=== PATIENT | female | born 1955 | race Caucasian/White ===

== ENCOUNTER 2018-11-20 11:43 | Inpatient (IN) | payer BC ==
[2018-11-20] MEDS ORDERED: NITROGLYCERIN 0.4MG SL TABLET #25 BTL SL PRN (12:07)
[2018-11-20] MEDS ORDERED: ASPIRIN 81 MG CHEWABLE TABLET PO ONE (12:07)
[2018-11-20 12:17] LABS: ABSOLUTE NEUTROPHIL COUNT 6.01; BASO % 0.6 % (0-6); EOS % 0.8 % (0-6); HEMATOCRIT 44.9 % (35.0-47.0); HEMOGLOBIN 14.3 gm/dl (11.6-16.0); LYMPH % 30.8 % (16-45); MEAN CORPUSCULAR HEMOGLOBIN 28.7 pg (27-33); MEAN CORPUSCULAR HGB CONC 31.8 g/dl (32-36); MEAN PLATELET VOLUME 10.4 fl (7.4-10.4); MONO % 6.8 % (0-9); PLATELET COUNT 292 K/uL (130-400); RED BLOOD COUNT 4.99 M/uL (3.80-5.40); RED CELL DISTRIBUTION WIDTH 15.7 % (11.5-14.5); WHITE BLOOD COUNT W/O DIFF 9.9 K/uL (4.2-12.2)
[2018-11-20 12:27] LABS: BLOOD UREA NITROGEN 17 mg/dL (8-23)
[2018-11-20 12:28] LABS: CREATININE 0.9 mg/dL (0.5-0.9); EST GLOMERULAR FILTRATION RATE > 60 mL/min; TOTAL PROTEIN 6.9 g/dL (6.6-8.7)
[2018-11-20 12:30] LABS: GLUCOSE,RANDOM 129 mg/dL (74-109)
[2018-11-20 12:33] LABS: ALB/GLOB RATIO 1.7 (1.1-1.8); ALBUMIN 4.3 g/dL (4.0-5.0); ALKALINE PHOSPHATASE 100 U/L (35-104); ALT/SGPT 29 U/L (<33); AST/SGOT 29 U/L (10.0-35.0); CREATINE PHOSPHOKINASE 57 U/L (26-192)
[2018-11-20 12:40] LABS: CKMB 2.2 ng/mL (<3.77)
[2018-11-20 12:44] LABS: THYROID STIMULATING HORMONE 6.87 uIU/mL (0.270-4.20)
[2018-11-20 13:42] LABS: THYROXINE (T4) 7.75 ug/dL (4.5-11.7)
--- NOTE | 2018-11-20 13:50 | Emergency Department Record ---
History of Present Illness - General Chief Complaint: Shortness of breath Stated Complaint: SOB Time Seen by Provider: 11/20/18 11:57 Source: Patient Mode of Arrival: Ambulatory Limitations: No limitations - History of Present Illness Initial Comments: pt went to her drs office this am and was found to be sob and had low sats w walking. pt has never had this problem before. she states she feels like there is a bubble in her chest. she has been under a lot of stress since her dad a few days ago. MD Complaint: Shortness of breath Onset/Timin -: Days(s) Consistency: Constant Worsens With: Nothing Associated Symptoms: Cough Treatments Prior to Arrival: None - Related Data Home Medications Medication Instructions Recorded Confirmed Last Taken Alprazolam [Xanax] 0.5 mg PO TID 11/20/18 11/20/18 Unknown Aspirin [Adult Low Dose Aspirin EC] 81 mg PO DAILY 11/20/18 11/20/18 Unknown Calcium Carb/Mag Ox/Zinc Sulf 1 each PO DAILY 11/20/18 11/20/18 Unknown [Awaqtqn-Skthuxdux-Wwyj Tablet] Clonazepam [Klonopin] 0.5 mg PO BID 11/20/18 11/20/18 Unknown Flaxseed Oil 1,000 mg PO DAILY 11/20/18 11/20/18 Unknown Glucosamine/D3/Boswellia Valencia 1 each PO DAILY 11/20/18 11/20/18 Unknown [Osteo Bi-Flex Tablet] Multivitamin [One Daily 1 each PO DAILY 11/20/18 11/20/18 Unknown Multivitamin] Thyroid,Pork [[place] Thyroid] 60 mg PO DAILY 11/20/18 11/20/18 Unknown Vitamin B Complex 1 each PO DAILY 11/20/18 11/20/18 Unknown Allergies Allergy/AdvReac Type Severity Reaction Status Date / Time dexamethasone [From TobraDex] Allergy HYPERSENSIT Verified 11/20/18 12:17 IVITY gentamicin Allergy PT UNSURE Verified 11/20/18 12:17 OF REACTION ketoconazole [From Nizoral] Allergy HYPERSENSIT Verified 11/20/18 12:17 IVITY levofloxacin [From Levaquin] Allergy HIVES Verified 11/20/18 12:17 neomycin [From Maxitrol] Allergy PT UNSURE Verified 11/20/18 12:17 OF REACTION nitrofurantoin Allergy PT UNSURE Verified 11/20/18 12:17 OF REACTION polymyxin B [From Polytrim] Allergy HIVES Verified 11/20/18 12:17 Sulfa (Sulfonamide Allergy HIVES Verified 11/20/18 12:17 Antibiotics) tobramycin Allergy HIVES Verified 11/20/18 12:17 trimethoprim [From Polytrim] Allergy HIVES Verified 11/20/18 12:17 fluticasone [From Flonase] AdvReac HYPERSENSIT Verified 11/20/18 12:17 IVITY Travel Screening - Travel/Exposure Within Last 30 Days Have you traveled within the last 30 days?: No - Travel/Exposure Within Last Year Have you traveled outside the [place] in the last year?: No - Additonal Travel Details Have you been exposed to anyone with a communicable illness?: No - Travel Symptoms Symptom Screening: None Review of Systems Reviewed: No additional complaints except as noted below Constitutional: Reports: As per HPI. Denies: Chills, Fever, Malaise, Night s weats, Weakness, Weight change Eyes: Reports: As per HPI. Denies: Eye discharge, Eye pain, Photophobia, Vision change ENT: Reports: As per HPI. Denies: Congestion, Dental pain, Ear pain, Epistaxis, Hearing loss, Throat pain Respiratory: Reports: As per HPI. Denies: Cough, Dyspnea, Hemoptysis, Stridor, Wheezes Cardiovascular: Reports: As per HPI. Denies: Arrhythmia, Chest pain, Dyspnea on exertion, Edema, Murmurs, Orthopnea, Palpitations, Paroxysmal nocturnal dyspnea, Rheumatic Fever, Syncope Endocrine: Reports: As per HPI. Denies: Fatigue, Heat or cold intolerance, Polydipsia, Polyuria Gastrointestinal: Reports: As per HPI. Denies: Abdominal pain, Constipation, Diarrhea, Hematemesis, Hematochezia, Melena, Nausea, Vomiting Genitourinary: Reports: As per HPI. Denies: Abnormal menses, Discharge, Dyspareunia, Dysuria, Frequency, Hematuria, Incontinence, Retention, Urgency Musculoskeletal: Reports: As per HPI. Denies: Arthralgia, Back pain, Gout, Joint swelling, Myalgia, Neck pain Skin: Reports: As per HPI. Denies: Bruising, Change in color, Change in juan r/nails, Lesions, Pruritus, Rash Neurological: Reports: As per HPI. Denies: Abnormal gait, Confusion, Headache, Numbness, Paresthesias, Seizure, Tingling, Tremors, Vertigo, Weakness Psychiatric: Reports: As per HPI. Denies: Anxiety, Auditory hallucinations, Depression, Homicidal thoughts, Suicidal thoughts, Visual hallucinations Hematological/Lymphatic: Reports: As per HPI. Denies: Anemia, Blood Clots, Easy bleeding, Easy bruising, Swollen glands Past Medical History - SOCIAL HISTORY Smoking Status: Former smoker Alcohol Use: None Drug Use: None - RESPIRATORY Hx Respiratory Disorders: Yes Hx Pneumonia: Yes - CARDIOVASCULAR Hx Cardio Disorders: No - NEURO Hx Neuro Disorders: No - GI Hx GI Disorders: Yes Hx Wt Loss/Wt Gain: Yes Comment:: pt states that she says she gains 20 within last 2 weeks. 11/20/2018 - Hx Genitourinary Disorders: No - ENDOCRINE Hx Endocrine Disorders: Yes Hx Thyroid Disease: Yes (hypo) - MUSCULOSKELETAL Hx Musculoskeletal Disorders: No - PSYCH Hx Psych Problems: No - HEMATOLOGY/ONCOLOGY Hx Hematology/Oncology Disorders: No Family Medical History Any Significant Family History?: No Physical Exam - General General Appearance: Alert, Oriented x3, Cooperative, Mild distress - Head Head exam: Normal inspection - Eye Eye exam: Normal appearance, PERRL, EOMI Pupils: Normal accommodation - ENT ENT exam: Normal exam, Mucous membranes moist, Normal external ear exam, Normal orophraynx Ear exam: Normal external inspection. negative: External canal tenderness Nasal Exam: Normal inspection. negative: Discharge, Sinus tenderness Mouth exam: Normal external inspection, Tongue normal Teeth exam: Normal inspection. negative: Dental caries Throat exam: Normal inspection. negative: Tonsillar erythema, Tonsillar exudate - Neck Neck exam: Normal inspection, Full ROM. negative: Tenderness - Respiratory Respiratory exam: Decreased breath sounds, Rales. negative: Respiratory distress - Cardiovascular Cardiovascular Exam: Normal rhythm, Normal heart sounds, Tachycardia - GI/Abdominal GI/Abdominal exam: Soft, Normal bowel sounds. negative: Tenderness - Rectal Rectal exam: Deferred - exam: Deferred - Extremities Extremities exam: Normal inspection, Full ROM, Normal capillary refill. negative: Tenderness - Back Back exam: Reports: Normal inspection, Full ROM. Denies: Muscle spasm, Rash noted, Tenderness - Neurological Neurological exam: Alert, Normal gait, Oriented X3, Reflexes normal - Psychiatric Psychiatric exam: Normal affect, Normal mood - Skin Skin exam: Dry, Intact, Normal color, Warm Course Vital Signs 11/20/18 11:45 Temperature 98.6 F Pulse Rate 118 H Respiratory 20 Rate Blood Pressure 113/88 Pulse Ox 95 - Reevaluation(s) Reevaluation #1: 11/20/18 15:16 ct shows bilateral moderate pleural effusions, enlarged l heart Reevaluation #2: 11/20/18 15:39 ekg lbbb, no old one to compare Medical Decision Making - Lab Data Result diagrams: 11/20/18 11:55 11/20/18 11:55 Lab Results 11/20/18 11/20/18 11/20/18 Range/Units 11:55 11:55 11:55 WBC 9.9 (4.2-12.2) K/uL RBC 4.99 (3.80-5.40) M/uL Hgb 14.3 (11.6-16.0) gm/dl Hct 44.9 (35.0-47.0) % MCV 90.0 (81-97) fl MCH 28.7 (27-33) pg MCHC 31.8 L (32-36) g/dl RDW 15.7 H (11.5-14.5) % Plt Count 292 (130-400) K/uL MPV 10.4 (7.4-10.4) fl Gran % 61.0 (47-80) % Lymphocytes % 30.8 (16-45) % Monocytes % 6.8 (0-9) % Eosinophils % 0.8 (0-6) % Basophils % 0.6 (0-6) % Absolute Neutrophils 6.01 D-Dimer 2.09 H (0-0.59) mg/L FEU Sodium 143 (136-145) mmol/L Potassium 4.1 (3.4-4.5) mmol/L Chloride 106 (98-107) mmol/L Carbon Dioxide 24.0 (22-29) mmol/L Anion Gap 13.0 (7-16) BUN 17 (8-23) mg/dL Creatinine 0.9 (0.5-0.9) mg/dL Estimated GFR > 60 mL/min Random Glucose 129 H (74-109) mg/dL Calcium 9.3 (8.8-10.2) mg/dL Total Bilirubin 0.70 (0.2-1.0) mg/dL AST 29 (10.0-35.0) U/L ALT 29 (<33) U/L Alkaline Phosphatase 100 (35-104) U/L Creatine Kinase 57 (26-192) U/L CK-MB (CK-2) 2.2 (<3.77) ng/mL Troponin T < 0.010 (0-0.010) ng/mL NT-Pro-B Natriuret Pep 7104.00 H (<125) pg/mL Total Protein 6.9 (6.6-8.7) g/dL Albumin 4.3 (4.0-5.0) g/dL Globulin 2.6 (1.4-4.8) gm/dL Albumin/Globulin Ratio 1.7 (1.1-1.8) TSH 6.87 H (0.270-4.20) uIU/mL Disposition Disposition: Admit Clinical Impression: Pleural effusion CHF (congestive heart failure) Qualifiers: Heart failure type: unspecified Heart failure chronicity: acute Qualified Code(s): I50.9 - Heart failure, unspecified Disposition: Still a Patient at [facility] Decision to Admit: Admit from ER Decision to Admit Date: 11/20/18 Decision to Admit Time: 15:39 Forms: Patient Portal Access Quality - Quality Measures Quality Measures: N/A - Blood Pressure Screening Does Patient Have Any of the Following: No Blood Pressure Classification: Pre-Hypertensive BP Reading Systolic Measurement: 113 Diastolic Measurement: 88 Screening for High Blood Pressure: < Pre-Hypertensive BP, F/U Documented > [[id number]] Pre-Hypertensive Follow-up Interventions: Follow-up with rescreen every year.
[2018-11-20] MEDS ORDERED: FUROSEMIDE IV 40MG/4ML VIAL IVP ONE (13:57)
[2018-11-20] MEDS ORDERED: ACETAMINOPHEN 500 MG TABLET PO PRN (16:40)
[2018-11-20] MEDS ORDERED: TEMAZEPAM 15 MG CAPSULE PO PRN (16:40)
[2018-11-20] MEDS: ALPRAZOLAM 0.5 MG PO SCH ×2 (17:49→21:04)
--- NOTE | 2018-11-20 18:44 | History & Physical ---
History of Present Illness - Date of Service Date of Service for History & Physical: 11/21/18 - History of Present Illness Admitting Diagnosis: acute chf, pleural effusions History of Present Illness: Mrs. Jaffe is a 63 y/o female who presents to [facility] ED with difficulty breathing. She went to her PCPs office today and was noted to have worsening shortness and not able to speak in full sentences. The patient says her symptoms have been progressive for about 10 days and is not associated with chest pain or cough. She says that she did have diarrhea during this period and she also describes not being able to lay down flat on the November 09 and she went to her PCP at that time and was told that her lungs were clear. The patient also reports starting a medical weight loss program and was drinking mostly water and he gain approximately 20lb within the last 2 weeks. She says that her feet became swollen and she could not put on her jeans yesterday due to the weight gain. On presentation to the ED the patient described a chest fullness and was unable to speak in complete sentences. Initial workup showed elevation in pro-BNP > 7000, elevated D-dimer 2.0 which then prompted a CTA. CTA was not suggestive of PE however it did reveal significant pulmonary congestion, bilateral pleural effusions and cardiomegaly. The patient was diuresed with IV Lasix and admitted to the general medical floor for continued workup for heart failure. PCP: Dr. Guillermina Page. Travel Screening - Travel/Exposure Within Last 30 Days Have you traveled within the last 30 days?: No - Travel/Exposure Within Last Year Have you traveled outside the [place] in the last year?: No - Additonal Travel Details Have you been exposed to anyone with a communicable illness?: No - Travel Symptoms Symptom Screening: None Review of Systems Constitutional: Reports: As per HPI. Denies: Chills, Fever, Malaise, Night sweats, Weakness, Weight change Eyes: Reports: As per HPI. Denies: Eye discharge, Eye pain, Photophobia, Vision change ENT: Reports: As per HPI. Denies: Congestion, Dental pain, Ear pain, Epistaxis, Hearing loss, Throat pain Respiratory: Reports: As per HPI. Denies: Cough, Dyspnea, Hemoptysis, Stridor, Wheezes Cardiovascular: Reports: As per HPI. Denies: Arrhythmia, Chest pain, Dyspnea on exertion, Edema, Murmurs, Orthopnea, Palpitations, Paroxysmal nocturnal dyspnea, Rheumatic Fever, Syncope Endocrine: Reports: As per HPI. Denies: Fatigue, Heat or cold intolerance, Polydipsia, Polyuria Gastrointestinal: Reports: As per HPI. Denies: Abdominal pain, Constipation, Diarrhea, Hematemesis, Hematochezia, Melena, Nausea, Vomiting Genitourinary: Reports: As per HPI. Denies: Abnormal menses, Discharge, Dyspareunia, Dysuria, Frequency, Hematuria, Incontinence, Retention, Urgency Musculoskeletal: Reports: As per HPI. Denies: Arthralgia, Back pain, Gout, Joint swelling, Myalgia, Neck pain Skin: Reports: As per HPI. Denies: Bruising, Change in color, Change in hair/nails, Lesions, Pruritus, Rash Neurological: Reports: As per HPI. Denies: Abnormal gait, Confusion, Headache, Numbness, Paresthesias, Seizure, Tingling, Tremors, Vertigo, Weakness Psychiatric: Reports: As per HPI. Denies: Anxiety, Auditory hallucinations, Depression, Homicidal thoughts, Suicidal thoughts, Visual hallucinations Hematological/Lymphatic: Reports: As per HPI. Denies: Anemia, Blood Clots, Easy bleeding, Easy bruising, Swollen glands Past Medical History - SOCIAL HISTORY Smoking Status: Former smoker Alcohol Use: None Drug Use: None - RESPIRATORY Hx Respiratory Disorders: Yes Hx Pneumonia: Yes - CARDIOVASCULAR Hx Cardio Disorders: No - NEURO Hx Neuro Disorders: No - GI Hx GI Disorders: Yes Hx Wt Loss/Wt Gain: Yes Comment:: pt states that she says she gains 20 within last 2 weeks. 11/20/2018 - Hx Genitourinary Disorders: No - ENDOCRINE Hx Endocrine Disorders: Yes Hx Diabetes: No Hx Thyroid Disease: Yes (hypo) - MUSCULOSKELETAL Hx Musculoskeletal Disorders: No - PSYCH Hx Psych Problems: No - HEMATOLOGY/ONCOLOGY Hx Hematology/Oncology Disorders: No Family Medical History Any Significant Family History?: Yes Hx Dementia: Father Hx Heart Disease: Father, Brother/Sister H&P Meds/Allergies - Allergies Allergies: Allergies Allergy/AdvReac Type Severity Reaction Status Date / Time dexamethasone [From TobraDex] Allergy HYPERSENSIT Verified 11/20/18 12:17 IVITY gentamicin Allergy PT UNSURE Verified 11/20/18 12:17 OF REACTION ketoconazole [From Nizoral] Allergy HYPERSENSIT Verified 11/20/18 12:17 IVITY levofloxacin [From Levaquin] Allergy HIVES Verified 11/20/18 12:17 neomycin [From Maxitrol] Allergy PT UNSURE Verified 11/20/18 12:17 OF REACTION nitrofurantoin Allergy PT UNSURE Verified 11/20/18 12:17 OF REACTION polymyxin B [From Polytrim] Allergy HIVES Verified 11/20/18 12:17 Sulfa (Sulfonamide Allergy HIVES Verified 11/20/18 12:17 Antibiotics) tobramycin Allergy HIVES Verified 11/20/18 12:17 trimethoprim [From Polytrim] Allergy HIVES Verified 11/20/18 12:17 fluticasone [From Flonase] AdvReac HYPERSENSIT Verified 11/20/18 12:17 IVITY - Home Medications Home Medications Medication Instructions Recorded Confirmed Last Taken Aspirin [Adult Low Dose Aspirin EC] 81 mg PO DAILY 11/20/18 11/20/18 Unknown Calcium Carb/Mag Ox/Zinc Sulf 1 each PO DAILY 11/20/18 11/20/18 Unknown [Vyymvgx-Sznsszzrt-Ltrf Tablet] Clonazepam [Klonopin] 0.25 mg PO TID PRN 11/20/18 11/21/18 Unknown Flaxseed Oil 1,000 mg PO DAILY 11/20/18 11/20/18 Unknown Glucosamine/D3/Boswellia Valencia 1 each PO DAILY 11/20/18 11/20/18 Unknown [Osteo Bi-Flex Tablet] Multivitamin [One Daily 1 each PO DAILY 11/20/18 11/20/18 Unknown Multivitamin] Thyroid,Pork [[place] Thyroid] 60 mg PO DAILY 11/20/18 11/20/18 Unknown Vitamin B Complex 1 each PO DAILY 11/20/18 11/20/18 Unknown - Active Medications Active Medications: Current Medications Acetaminophen (Tylenol 500mg Tab) 1,000 mg PO Q6H PRN PRN Reason: PAIN - MILD(1-4)/FEVER Aspirin (Ecotrin (Ec)) 325 mg PO DAILY MARYBETH Furosemide (Lasix Iv) 40 mg IVP DAILY MARYBETH Non-Formulary Medication (Alprazolam [Xanax]) 0.5 mg PO TID MARYBETH Last Admin: 11/20/18 17:49 Dose: Not Given Documented by: Non-Formulary Medication (Clonazepam [Klonopin]) 0.5 mg PO BID MARYBETH Non-Formulary Medication (Thyroid,Pork [[place] Thyroid]) 60 mg PO DAILY MARYBETH Temazepam (Restoril) 15 mg PO QHS PRN PRN Reason: INSOMNIA Physical Exam - Vital Signs Vital Signs: Vital Signs - Last 24 Hrs Temp Pulse Pulse Resp BP BP Pulse Ox 11/20/18 17:24 16 11/20/18 16:40 97.2 F L 79 109 H 18 105/70 94 L 11/20/18 16:10 109 H 18 115/78 98 11/20/18 16:00 108 H 18 116/81 98 11/20/18 15:00 98 H 16 98/66 98 11/20/18 13:25 105 H 16 101/73 96 11/20/18 12:30 106 H 18 106/61 96 11/20/18 12:21 106 H 18 115/77 97 11/20/18 11:45 98.6 F 118 H 20 113/88 95 - General General Appearance: Alert, Oriented x3, Cooperative, Mild distress Limitations: No limitations - Head Head exam: Normal inspection - Eye Eye exam: Normal appearance, PERRL, EOMI Pupils: Normal accommodation - ENT ENT exam: Normal exam, Mucous membranes moist, Normal external ear exam, Normal orophraynx Ear exam: Normal external inspection. negative: External canal tenderness Nasal Exam: Normal inspection. negative: Discharge, Sinus tenderness Mouth exam: Normal external inspection, Tongue normal Teeth exam: Normal inspection. negative: Dental caries Throat exam: Normal inspection. negative: Tonsillar erythema, Tonsillar exudate - Neck Neck exam: Normal inspection, Full ROM. negative: Tenderness - Respiratory Respiratory exam: Decreased breath sounds, Rales. negative: Respiratory distress - Cardiovascular Cardiovascular Exam: Normal rhythm, Normal heart sounds, Tachycardia - GI/Abdominal GI/Abdominal exam: Soft, Normal bowel sounds. negative: Tenderness - Rectal Rectal exam: Deferred - exam: Deferred - Extremities Extremities exam: Normal inspection, Full ROM, Normal capillary refill. negative: Tenderness - Back Back exam: Reports: Normal inspection, Full ROM. Denies: Muscle spasm, Rash noted, Tenderness - Neurological Neurological exam: Alert, Normal gait, Oriented X3, Reflexes normal - Psychiatric Psychiatric exam: Normal affect, Normal mood - Skin Skin exam: Dry, Intact, Normal color, Warm Results - Labs Result Diagrams: 11/20/18 11:55 11/20/18 11:55 Labs Last 24 Hours: Laboratory Results - last 24 hr 11/20/18 11/20/18 11/20/18 11:55 11:55 11:55 WBC 9.9 RBC 4.99 Hgb 14.3 Hct 44.9 MCV 90.0 MCH 28.7 MCHC 31.8 L RDW 15.7 H Plt Count 292 MPV 10.4 Gran % 61.0 Lymphocytes % 30.8 Monocytes % 6.8 Eosinophils % 0.8 Basophils % 0.6 Absolute Neutrophils 6.01 D-Dimer 2.09 H Sodium 143 Potassium 4.1 Chloride 106 Carbon Dioxide 24.0 Anion Gap 13.0 BUN 17 Creatinine 0.9 Estimated GFR > 60 Random Glucose 129 H Calcium 9.3 Total Bilirubin 0.70 AST 29 ALT 29 Alkaline Phosphatase 100 Creatine Kinase 57 CK-MB (CK-2) 2.2 Troponin T < 0.010 NT-Pro-B Natriuret Pep 7104.00 H Total Protein 6.9 Albumin 4.3 Globulin 2.6 Albumin/Globulin Ratio 1.7 TSH 6.87 H Thyroxine (T4) T3 Uptake 11/20/18 13:15 WBC RBC Hgb Hct MCV MCH MCHC RDW Plt Count MPV Gran % Lymphocytes % Monocytes % Eosinophils % Basophils % Absolute Neutrophils D-Dimer Sodium Potassium Chloride Carbon Dioxide Anion Gap BUN Creatinine Estimated GFR Random Glucose Calcium Total Bilirubin AST ALT Alkaline Phosphatase Creatine Kinase CK-MB (CK-2) Troponin T NT-Pro-B Natriuret Pep Total Protein Albumin Globulin Albumin/Globulin Ratio TSH Thyroxine (T4) 7.75 T3 Uptake 33 VTE H&P Assessment - Risk for VTE Risk for VTE: Yes Risk Level: Moderate Risk Assessment Date: 11/20/18 Risk Assessment Time: 17:00 VTE Orders Placed or Will Be Placed: Yes Plan - Inpatient Certification Inpatient Certification: Admit to inpatient care: Based on my medical assessment, after consideration of patient's risk factors (age, co-morbidities and patient presenting symptoms and acuity), I expect that this patient will remain in the hospital greater than or equal to two midnights and that the services needed warrant inpatient care because: Patient Risk Factors: New onset CHF Estimated length of stay: 72 hours The patient may reasonably be expected to be discharged or transferred to a hospital within 96 hours after admission to [facility]. I certify that my determination is in accordance with my understanding of Medicare requirements for reasonable and necessary inpatient services. 11/20/18 18:31 - Detailed Diagnosis and Plan (1) Fluid overload Current Visit: Yes Status: Acute Base Code: E87.70 - FLUID OVERLOAD, UNSPECIFIED Comment: 11/20/18: - Likely 2/2 to new onset CHF. - Elevated pro-BNP 7104, CTA suggestive of pulmonary congestion and cardiomegaly. - ECG: sinus tachycardia but no other acute findings. - Lasix 40mg IV QD, I/Os and daily weights. Continuous Cardiac monitoring. - 2D echo with doppler ordered. - Cardiology consult placed. (2) Bilateral pleural effusion Current Visit: Yes Status: Acute Base Code: J90 - PLEURAL EFFUSION, NOT ELSEWHERE CLASSIFIED Comment: 11/20/18: - 2/2 volume overload. - CTA notes evidence of large pleural effusions bilaterally and pulmonary congestion. - Diuresis with Lasix 40mg QD. - Oxygen PRN to maintain saturations >92%. - If no improvement with diuresis may consult IR for thoracentesis. (3) Elevated d-dimer Current Visit: Yes Status: Acute Base Code: R79.89 - OTHER SPECIFIED ABNORMAL FINDINGS OF BLOOD CHEMISTRY Comment: 11/20/18: - D-dimer elevated at 2.0, the etiology of which is unclear. - CTA negative for PE - No hx of malignancy, or CKD, (4) Hypothyroid Current Visit: Yes Status: Acute Base Code: E03.9 - HYPOTHYROIDISM, UNSPECIFIED Comment: 11/20/18: - TSH 6.87, T4 7.75 - Resume Orrick thyroid 60mg QD. (5) Anxiety Current Visit: Yes Status: Acute Base Code: F41.9 - ANXIETY DISORDER, UNSPECIFIED Comment: 11/21/18: - Resume Klonipin 0.5mg TID PRN. (6) DVT prophylaxis Current Visit: Yes Status: Acute Base Code: Z29.9 - ENCOUNTER FOR PROPHYLACTIC MEASURES, UNSPECIFIED Comment: 11/20/18: - Lovenox 40mg subq qd. - Ambulation encouraged. (7) Full code status Current Visit: Yes Status: Acute Base Code: Z78.9 - OTHER SPECIFIED HEALTH STATUS Comment: 11/20/18: - Full code status.
[2018-11-20] MEDS: ENOXAPARIN 40 MG/0.4 ML SYR SC SCH ×2 (21:04→21:14)
[2018-11-20] MEDS ORDERED: CLONAZEPAM 1MG TABLET PO SCH (22:00)
--- NOTE | 2018-11-21 08:27 | CT ANGIOGRAM REPORT ---
EXAM: CT ANGIOGRAM OF THE CHEST WITH POST PROCESSING HISTORY: SHORTNESS OF BREATH. ELEVATED D-DIMER. ELEVATED BNP. TECHNIQUE: Routine helical CTA examination of the chest was performed utilizing a pulmonary embolus protocol. with 85 ml of Omnipaque 350 utilized. Maximum intensity projection reformatted images are generated in the coronal and sagittal planes. These are reviewed. Comparison: None. FINDINGS: Opacification of the systemic arteries is satisfactory for interpretation. No luminal filling defect is noted in the outflow tract, main arteries, lobar arteries nor proximal segment arteries to suggest acute pulmonary embolic disease. Evaluation of the segmental arteries in the inferior lung bases is limited by motion artifact, right worse than the left. The heart is enlarged with dilatation of the left atrium and left ventricle. The thoracic aorta is not diagnostically opacified. It is atherosclerotic and without aneurysmal dilatation, however. There is a small amount of fluid within the superior pericardiac recess. No rosalie pericardial effusion. There are several nonenlarged to borderline enlarged lymph nodes scattered throughout the mediastinum. There is mild prominence of [id number] tissue within the right hilum measuring 1.5 cm in short axis diameter. No left hilar adenopathy is seen. The central airways are clear. There are small dependent pleural effusions, right larger than left. There is intralobular septal thickening scattered throughout the lungs. Ground glass opacifies are also noted within the lung bases associated with fine reticular opacity prominence. There is atelectasis within the medial segment of the right middle lobe and the medial aspect of the lingula. There is a calcified granuloma within the posterior aspect of the right lower lobe as seen on series 2 image 134. This measures approximately 3 mm. There is borderline to mild wall thickening at multiple segmental bronchi. This can be seen with reactive airways disease or bronchitis. Mild emphysema within the upper lungs. The adrenal glands are not enlarged. No lytic or blastic bone lesion is seen. IMPRESSION: 1. NO CTA EVIDENCE OF ACUTE PULMONARY EMBOLIC DISEASE. EVALUATION OF THE SEGMENTAL ARTERIES OF THE INFERIOR LUNG BASES IS, HOWEVER, LIMITED BY ARTIFACT. 2. CARDIOMEGALY WITH DILATATION OF THE LEFT HEART CHAMBERS. THERE ARE ALSO ADDITIONAL CHANGES SUGGESTING CHF INCLUDING PRESUMED EDEMA WITHIN THE LEGS MANIFESTED BY RETICULAR OPACITY PROMINENCE AND GROUND GLASS OPACITIES IN THE LUNG BASES WELL DEPENDENT PLEURAL EFFUSIONS. 3. CALCIFIED GRANULOMA WITHIN THE RIGHT LUNG BASE. 4. ATELECTASIS WITHIN THE MEDIAL SEGMENT OF THE RIGHT MIDDLE LOBE AND THE LINGULA. JOB NUMBER: [id number] [facility]
[2018-11-21] MEDS ORDERED: CLONAZEPAM 1MG TABLET PO PRN (09:56)
[2018-11-21] MEDS ORDERED: FUROSEMIDE IV 40MG/4ML VIAL IVP SCH (10:00)
[2018-11-21] MEDS ORDERED: ARMOUR THYROID 60 MG PO SCH (10:00)
[2018-11-21] MEDS ORDERED: ASPIRIN 325 MG TAB ENTERIC-COATED PO SCH (10:00)
[2018-11-21] MEDS: ENOXAPARIN 40 MG/0.4 ML SYR SC SCH (10:24)
--- NOTE | 2018-11-21 12:16 | Discharge Summary ---
Providers Discharge Summary Date: 11/21/18 Date of admission: 11/20/18 16:10 Attending physician: SUZI PHELPS Primary care physician: CARMITA PAGE M.D. Consults: Consult Orders 11/20/18 16:40 Consult NOW Consulting Provider: DIONNA SIMMONS Physician Instructions: Reason For Exam: new onset chf w enlarged heart, plerual effusions Physical Exam - Vital Signs Vital Signs: Vital Signs - Last 24 Hrs Temp Pulse Pulse Resp BP BP Pulse Ox 11/21/18 10:56 98.4 F 105/72 11/21/18 10:30 96 11/21/18 10:00 98.4 F 93 H 18 105/72 98 11/21/18 04:39 97.7 F 89 20 100/50 94 L 11/21/18 00:52 97.7 F 97 H 20 94/58 98 11/20/18 21:00 18 11/20/18 20:45 98.7 F 103 H 20 98/68 98 11/20/18 17:24 16 11/20/18 16:40 97.2 F L 79 109 H 18 105/70 94 L 11/20/18 16:10 109 H 18 115/78 98 11/20/18 16:00 108 H 18 116/81 98 11/20/18 15:00 98 H 16 98/66 98 11/20/18 13:25 105 H 16 101/73 96 11/20/18 12:30 106 H 18 106/61 96 11/20/18 12:21 106 H 18 115/77 97 - General General Appearance: Alert, Oriented x3, Cooperative, Mild distress Limitations: No limitations - Head Head exam: Normal inspection - Eye Eye exam: Normal appearance, PERRL, EOMI Pupils: Normal accommodation - ENT ENT exam: Normal exam, Mucous membranes moist, Normal external ear exam, Normal orophraynx Ear exam: Normal external inspection. negative: External canal tenderness Nasal Exam: Normal inspection. negative: Discharge, Sinus tenderness Mouth exam: Normal external inspection, Tongue normal Teeth exam: Normal inspection. negative: Dental caries Throat exam: Normal inspection. negative: Tonsillar erythema, Tonsillar exudate - Neck Neck exam: Normal inspection, Full ROM. negative: Tenderness - Respiratory Respiratory exam: Normal lung sounds bilaterally. negative: Chest wall tenderness, Respiratory distress - Cardiovascular Cardiovascular Exam: Normal rhythm, Normal heart sounds, Tachycardia Peripheral Pulses: 3+: Radial (R), Radial (L), Dorsalis Pedis (R), Dorsalis Pedis (L) - GI/Abdominal GI/Abdominal exam: Soft, Normal bowel sounds. negative: Tenderness - Rectal Rectal exam: Deferred - exam: Deferred - Extremities Extremities exam: Normal inspection, Full ROM, Normal capillary refill. negative: Tenderness - Back Back exam: Reports: Normal inspection, Full ROM. Denies: Muscle spasm, Rash noted, Tenderness - Neurological Neurological exam: Alert, Normal gait, Oriented X3, Reflexes normal - Psychiatric Psychiatric exam: Normal affect, Normal mood - Skin Skin exam: Dry, Intact, Normal color, Warm Hospitalization - Hospitalization Admission Diagnosis: acute chf, pleural effusions - Problem List/Discharge Diagnosis (1) New onset of congestive heart failure Current Visit: Yes Status: Acute Base Code: I50.9 - HEART FAILURE, UNSPECIFIED Comment: 11/21/18: - 2D echo: EF 10-15%, globaly hypokinesis and diastolic dsfx. - Continue diuresis with Lasix 40mg IV QD. - Start low dose KEVIN, BB. - Pending evaluation by Cardiology. Transfer to [facility] [place] [place] for ischemic workup. (2) Fluid overload Current Visit: Yes Status: Acute Base Code: E87.70 - FLUID OVERLOAD, UNSPECIFIED Comment: 11/21/18: - Likely 2/2 to new onset CHF. - Elevated pro-BNP 7104, CTA suggestive of pulmonary congestion and cardiomegaly. - ECG: sinus tachycardia but no other acute findings. - Lasix 40mg IV QD, I/Os and daily weights. Continuous Cardiac monitoring. - 2D echo with doppler ordered. - Cardiology consult placed. (3) Bilateral pleural effusion Current Visit: Yes Status: Acute Base Code: J90 - PLEURAL EFFUSION, NOT ELSEWHERE CLASSIFIED Comment: 11/21/18: - 2/2 volume overload. - CTA notes evidence of large pleural effusions bilaterally and pulmonary congestion. - Diuresis with Lasix 40mg QD. - Oxygen PRN to maintain saturations >92%. - If no improvement with diuresis may consult IR for thoracentesis. (4) Elevated d-dimer Current Visit: Yes Status: Acute Base Code: R79.89 - OTHER SPECIFIED ABNORMAL FINDINGS OF BLOOD CHEMISTRY Comment: 11/21/18: - D-dimer elevated at 2.0, the etiology of which is unclear. - CTA negative for PE - No hx of malignancy, or CKD, (5) Hypothyroid Current Visit: Yes Status: Acute Base Code: E03.9 - HYPOTHYROIDISM, UNSPECI FIED Comment: 11/21/18: - TSH 6.87, T4 7.75 - Resume Deary thyroid 60mg QD. (6) Anxiety Current Visit: Yes Status: Acute Base Code: F41.9 - ANXIETY DISORDER, UNSPECIFIED Comment: 11/21/18: - Resume Klonipin 0.5mg TID PRN. (7) DVT prophylaxis Current Visit: Yes Status: Acute Base Code: Z29.9 - ENCOUNTER FOR PROPHYLACTIC MEASURES, UNSPECIFIED Comment: 11/20/18: - Lovenox 40mg subq qd. - Ambulation encouraged. (8) Full code status Current Visit: Yes Status: Acute Base Code: Z78.9 - OTHER SPECIFIED HEALTH STATUS Comment: 11/21/18: - Full code status. - Disposition Transfer to [facility] [place] [place] admitting to D service. - Hospitalization Course Disposition: Acute Care Hospital Transfer Hospital Course: Mrs. Jaffe is a 63 y/o female who presents to [facility] ED with difficulty breathing. She went to her PCPs office today and was noted to have worsening shortness and not able to speak in full sentences. The patient says her symptoms have been progressive for about 10 days and is not associated with chest pain or cough. She says that she did have diarrhea during this period and she also describes not being able to lay down flat on the November 09 and she went to her PCP at that time and was told that her lungs were clear. The patient also reports starting a medical weight loss program and was drinking mostly water and he gain approximately 20lb within the last 2 weeks. She says that her feet became swollen and she could not put on her jeans yesterday due to the weight gain. On presentation to the ED the patient described a chest fullness and was unable to speak in complete sentences. Initial workup showed elevation in pro-BNP > 7000, elevated D-dimer 2.0 which then prompted a CTA. CTA was not suggestive of PE however it did reveal significant pulmonary congestion, bilateral pleural effusions and cardiomegaly. The patient was diuresed with IV Lasix and admitted to the general medical floor for continued workup for heart failure. 11/21: 2D echo this morning reads global hypokinesis with marked reduction in EF 10-15%. She has symptomatically improved with diuretics but will require further workup for ischemic disease. The case was discussed with Dr. Us who recommended transfer to [facility] [place] [place] for workup. PCP: Dr. Guillermina Page. Procedures: Imaging and X-Rays 11/20/18 12:43 CHEST CTA w contrast [CTA] Stat Cardiology Procedures 11/20/18 12:07 Chain Repairer NOW EKG NOW 11/20/18 16:40 EKG QDX2@0600 Echo W/CF & Cardiac Doppler ONCE Abnormal Labs: Abnormal Lab Results 11/20/18 11/20/18 11/20/18 Range/Units 11:55 11:55 11:55 MCHC 31.8 L (32-36) g/dl RDW 15.7 H (11.5-14.5) % D-Dimer 2.09 H (0-0.59) mg/L FEU Random Glucose 129 H (74-109) mg/dL NT-Pro-B Natriuret Pep 7104.00 H (<125) pg/mL TSH 6.87 H (0.270-4.20) uIU/mL 11/21/18 Range/Units 06:14 MCHC (32-36) g/dl RDW (11.5-14.5) % D-Dimer (0-0.59) mg/L FEU Random Glucose (74-109) mg/dL NT-Pro-B Natriuret Pep 6531.00 H (<125) pg/mL TSH (0.270-4.20) uIU/mL Condition at Discharge: (1) Good Discharge Diagnosis: Systolic/Diastolic HF. Discharge Medications - Discharge Medications Home Medications: Ambulatory Orders Aspirin [Adult Low Dose Aspirin EC] 81 mg PO DAILY 11/20/18 [Last Taken Unknown] Calcium Carb/Mag Ox/Zinc Sulf [Ffslogy-Kkdwcpvag-Bsfi Tablet] 1 each PO DAILY 11/20/18 [Last Taken Unknown] Clonazepam [Klonopin] 0.25 mg PO TID PRN 11/20/18 [Last Taken Unknown] Flaxseed Oil 1,000 mg PO DAILY 11/20/18 [Last Taken Unknown] Glucosamine/D3/Boswellia Valencia [Osteo Bi-Flex Tablet] 1 each PO DAILY 11/20/18 [Last Taken Unknown] Multivitamin [One Daily Multivitamin] 1 each PO DAILY 11/20/18 [Last Taken Unknown] Thyroid,Pork [Deary Thyroid] 60 mg PO DAILY 11/20/18 [Last Taken Unknown] Vitamin B Complex 1 each PO DAILY 11/20/18 [Last Taken Unknown] Discharge Plan - Discharge Instructions Additional Instructions: Transfering to [facility] [place] [place] [facility] for further workup. Discussed plan of care with the patient. Quality Measures - Quality Measures Quality Measures: Documentation of Current Medications in Medical Record, Heart Failure, Screening for High Blood Pressure and F/U Documented - Current Medications Quality Measure: Measure #130: Documentation of Current Medications Documentation of Current Medications: <Current Medications Documented/Reviewed> [G9067] - Blood Pressure Screening Quality Measure: Screening for High Blood Pressure and Follow-Up Documented Does Patient Have Any of the Following: No Blood Pressure Classification: Normal BP Reading Systolic Measurement: 105 Diastolic Measurement: 72 Screening for High Blood Pressure: < Normal BP, F/U Not Required > [G8783] - Heart Failure (KEVIN/ARB Therapy) Quality Measure: Heart Failure Left Ventricular Systolic Function: LV Ejection Fraction less than 40% [3021F] KEVIN Inhibitor or ARB Therapy for LVSD: <KEVIN Inhibitor or ARB therapy prescribed or currently taken> [4010F] - Heart Failure (Beta-iliana Therapy) Quality Measure: Heart Failure Left Ventricular Systolic Function: LV Ejection Fraction less than 40% [3021F] Beta-Iliana Therapy for LVEF < 40%: <Beta-Iliana Therapy Prescribed> [G8450] - Elder Abuse Suspicion Index EASI Reference Information: Tabatha MCKEE, Yoly C, Es D, Hari Null.Development and validation of a tool to assist physicians identification of elder abuse: The Elder Abuse Suspicion Index (EASI ). Journal of Elder Abuse and Neglect, 2008; 20 (3): 276-300.
[2018-11-21] MEDS ORDERED: METOPROLOL SUCC 25 MG TAB.ER PO SCH (12:30)
[2018-11-21] MEDS ORDERED: LISINOPRIL 5 MG TABLET PO SCH (12:30)
--- NOTE | 2018-11-21 13:14 | Cardiology Consult ---
DATE OF CONSULTATION: 11/21/18 Ms. Jaffe is [id number] who was seen in consultation for progressive dyspnea. She has been having progressive dyspnea for the past one week prior to presentation to [facility] on 11/20/18. She has been taking care of her father who has been ill for the past several weeks. He recently at the age of 91 from pneumonia and acute kidney injury. During that interval she has had multiple hospital visits with him and reported having cough. She states she was having a cough for the last couple of weeks and episodes of diarrhea., She believes she had a viral illness and unfortunately then began to be progressively dyspneic. She also noted increasing swelling in her lower extremities. The swelling in her feet and ankles occurred five days prior to her presentation. She has no symptoms of angina, palpitations, TIA, or syncope. No previous history of claudication. She denies history of diabetes mellitus, hypertension, hyperlipidemia, or family history of premature coronary artery disease. She does have a forty pack year smoking history and quit sixteen years ago. She has no significant alcohol use. She reports being significantly stressed during her father's recent illness and . PAST MEDICAL HISTORY: Includes hypothyroidism. PAST SURGICAL HISTORY: Includes total hysterectomy, ulnar nerve surgery, appendectomy, and bunionectomy. MEDICATIONS: Poulan Thyroid. ALLERGIES: SULFA CAUSING SWELLING. 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 She had a forty pack year smoking history before quitting sixteen years ago. She has no significant alcohol use. She is . FAMILY HISTORY: Father at the age of 91 from pneumonia and acute kidney injury. Mother is now 88 years old and has a permanent pacemaker. PHYSICAL EXAMINATION: Her temperature is 97.7, blood pressure is 100/50, heart rate is 89 b.p.m., she is 94% on room air. LUNGS: Currently clear to auscultation. CARDIAC: Normal. ABDOMEN: Obese and soft. EXTREMITIES: No edema. LABORATORY PROFILE: White count is 9.9, hemoglobin is 14.3, platelets are 292,000, D-Dimer was 2.09, sodium was 143, potassium was 4.1, BUN was 17, creatinine was 0.9, glucose 129, AST is 29, ALT is 29, Troponin was less than 0.010, Pro-BNP was 7,104, TSH was 6.87. ECG demonstrates sinus rhythm with incomplete left bundle branch block. Echocardiogram performed on 11/21/18 demonstrates an EF of 10-15% with moderate to severe mitral regurgitation and Grade 3 diastolic dysfunction. FINAL IMPRESSION: 1. ACUTE SYSTOLIC AND DIASTOLIC CONGESTIVE HEART FAILURE. 2. HYPOTHYROIDISM. 3. HISTORY OF FORTY PACK YEAR SMOKING HISTORY. PLAN: Ms. Jaffe has acute systolic and diastolic congestive heart failure. She is currently receiving furosemide 40 mg daily with good improvement in the past twenty-four hours. She is currently receiving aspirin 325 mg daily at this time. She will continue taking Poulan Thyroid 60 mg daily. Will recommend transfer to [facility] for possible right and left cardiac catheterization. The etiology of her cardiomyopathy is either stress related cardiomyopathy, viral mediated cardiomyopathy versus ischemic cardiomyopathy. Will initiate beta francine and ACEI/ARB/Entresto based on blood pressures after transfer. JOB NUMBER: [id number] MTDD
== END 2018-11-21 13:15 | disposition short-term general hospital (02) | DRG 292 ==
LOC: ER 11:43 → MEDSURG 16:10
PROVIDERS: ADMIT Internal Medicine; ATTEND Internal Medicine
DX: I50.9 Heart failure, unspecified (principal); J90 Pleural effusion, not elsewhere classified; E87.70 Fluid overload, unspecified; R79.89 Other specified abnormal findings of blood chemistry; E03.9 Hypothyroidism, unspecified; Z87.891 Personal history of nicotine dependence; F41.9 Anxiety disorder, unspecified
CPT/HCPCS: 71275; 80053; 82550; 82553; 83880; 84436; 84443; 84479; 84484; 85025; 85379; 93005; 93010; 93306; 94760; 96374; 99223; 99285; J1650; J1940